=== PATIENT | female | born 2000 | race American Indian/Alaskan Native ===

== ENCOUNTER 2021-05-25 09:36 | Emergency (ER) | payer OTHER ==
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
[2021-05-25] MEDS ORDERED: Acetaminophen/oxyCODONE 325-5 MG Tab PO ONE (10:25)
[2021-05-25] MEDS ORDERED: Ondansetron 4 MG Tab.DIS PO ONE (10:25)
--- NOTE | 2021-05-25 10:46 | CR ---
EXAMINATION: Ankle Min 3V Lt SEX: Female AGE: 20 years CLINICAL HISTORY: 20-year-old female injured left ankle/foot r/o fracture or dislocation. INTERPRETATION: Negative exam. 1. Homogeneous normal bone mineral density for age and gender. No ankle joint effusion or appreciable STS. 2. No sign of pathologic skeletal lesion, left ankle fracture or dislocation. 3. Symmetric spacing normal-appearing tibiotalar mortise joint. No arthritic degenerative changes. 4. No heel spurs. No foreign bodies.
--- NOTE | 2021-05-25 10:57 | CR ---
EXAMINATION: Foot Comp Min 3V Lt SEX: Female AGE: 20 years CLINICAL HISTORY: 20-year-old female left foot pain (injury ankle/foot). No comparison films immediately available. Interpretation: Abnormal. Fractures left foot. 1. Pronounced asymmetric soft tissue swelling (STS) over the lateral aspect of the left foot. Crush injury? 2. Underlying FRACTURES (nondisplaced fracture @ base of the fifth metatarsal; comminuted cuboid fracture). 3. No sign of calcaneal, talar, other midfoot, metatarsal or phalangeal fracture of the left foot. 4. No foreign bodies.
== END 2021-05-25 12:00 | disposition home or self-care (01) ==
LOC: DL.ED 09:36
DX: S92.355A Nondisplaced fracture of fifth metatarsal bone, left foot, initial encounter for closed fracture (principal); S92.215A Nondisplaced fracture of cuboid bone of left foot, initial encounter for closed fracture; Y04.2XXA Assault by strike against or bumped into by another person, initial encounter
CPT/HCPCS: 73610-LT; 73630-LT; 99283; A9270-GY

== ENCOUNTER 2021-05-25 21:11 | Emergency (ER) | payer OTHER ==
[2021-05-25] MEDS ORDERED: Acetaminophen/oxyCODONE 325-5 MG Tab PO ONE (21:42)
--- NOTE | 2021-05-25 21:47 | EDM.PDOC ---
ED HPI GENERAL MEDICAL PROBLEM - General Chief Complaint: Lower Extremity Injury/Pain Stated Complaint: BROKEN ANKLE Time Seen by Provider: 05/25/21 21:35 Source of Information: Reports: Patient History Limitations: Reports: No Limitations - History of Present Illness INITIAL COMMENTS - FREE TEXT/NARRATIVE: This 20 yo female patient reports to the ED due to increased pain in her left foot. The patient was seen in the ED earlier today and diagnosed with a metatarsal fracture. The patient was placed in a boot and discharged with a script for Percocet. The patient reports her mother attempted to fill the prescription, but it could not be filled by her mother due to it being a narcotic. The patient did get a set of crutches from the clinic, but continue to have increased pain and swelling in the foot. The patient reports she has been attempting to rest and elevate the extremity. Onset: Today Duration: Constant Location: Reports: Lower Extremity, Left Quality: Reports: Ache, Pressure Severity: Moderate Improves with: Reports: None Worsens with: Reports: None Context: Reports: Other Associated Symptoms: Reports: No Other Symptoms Left Foot Pain Score (Numeric/FACES): 10 - Related Data Allergies Allergy/AdvReac Type Severity Reaction Status Date / Time No Known Allergies Allergy Verified 05/25/21 21:25 Home Meds: Home Meds . [No Known Home Meds] 05/25/21 [History] Past Medical History HEENT History: Reports: None Cardiovascular History: Reports: None Respiratory History: Reports: Asthma Gastrointestinal History: Reports: None Genitourinary History: Reports: None DIRECT SUPPORT PROFESSIONAL CAREGIVER History: Reports: None Musculoskeletal History: Reports: None Neurological History: Reports: None Psychiatric History: Reports: None Endocrine/Metabolic History: Reports: None Hematologic History: Reports: None Immunologic History: Reports: None Oncologic (Cancer) History: Reports: None Dermatologic History: Reports: None - Infectious Disease History Infectious Disease History: Reports: None - Past Surgical History Head Surgeries/Procedures: Reports: None Social & Family History - Family History Family Medical History: Unobtainable - Tobacco Use Tobacco Use Status *Q: Never Tobacco User Second Hand Smoke Exposure: No - Caffeine Use Caffeine Use: Reports: Energy Drinks, Soda - Recreational Drug Use Recreational Drug Use: No Review of Systems - Review of Systems Review Of Systems: Comprehensive ROS is negative, except as noted in HPI. ED EXAM, GENERAL - Physical Exam Exam: See Below Exam Limited By: No Limitations General Appearance: Alert, WD/WN, Mild Distress, Thin Eye Exam: Bilateral Eye: EOMI, Normal Inspection, PERRL Ears: Normal External Exam, Normal Canal, Hearing Grossly Normal, Normal TMs Nose: Normal Inspection, Normal Mucosa, No Blood Throat/Mouth: Normal Inspection, Normal Lips, Normal Teeth, Normal Gums, Normal Oropharynx, Normal Voice, No Airway Compromise Head: Atraumatic, Normocephalic Neck: Normal Inspection, Supple, Non-Tender, Full Range of Motion Respiratory/Chest: No Respiratory Distress, Lungs Clear, Normal Breath Sounds, No Accessory Muscle Use, Chest Non-Tender Cardiovascular: Normal Peripheral Pulses, Regular Rate, Rhythm, No Edema, No Gallop, No JVD, No Murmur, No Rub GI/Abdominal: Normal Bowel Sounds, Soft, Non-Tender, No Organomegaly, No Distention, No Abnormal Bruit, No Mass (Female) Exam: Deferred Rectal (Female) Exam: Deferred Back Exam: Normal Inspection, Full Range of Motion, NT Extremities: Leg Pain (left foot pain) Neurological: Alert, Oriented, CN II-XII Intact, Normal Cognition, Normal Gait, Normal Reflexes, No Motor/Sensory Deficits Psychiatric: Normal Affect, Normal Mood Skin Exam: Warm, Dry, Intact, Normal Color, No Rash Lymphatic: No Adenopathy Course - Vital Signs Last Recorded V/S: Last Vital Signs Temp 99.6 F 05/25/21 21:21 Pulse 107 H 05/25/21 21:21 Resp 18 05/25/21 21:21 BP 114/61 05/25/21 21:21 Pulse Ox 96 05/25/21 21:21 - Orders/Labs/Meds Orders: Active Orders 24 hr Category Date Time Status Acetaminophen/oxyCODONE [Percocet 325-5 MG] Med 05/25/21 21:42 Once 1 tab PO ONETIME ONE Medication Orders Oxycodone/Acetaminophen (Acetaminophen/Oxycodone 325-5 Mg Tab) 1 tab PO ONETIME ONE Stop: 05/25/21 21:43 Meds: Medications Generic Name Dose Route Start Last Admin Trade Name Freq PRN Reason Stop Dose Admin Oxycodone/Acetaminophen 1 tab 05/25/21 21:42 Acetaminophen/Oxycodone 325-5 Mg Tab PO 10/15/21 21:43 ONETIME ONE Departure - Departure Time of Disposition: 21:51 Disposition: Home, Self-Care 01 Condition: Fair Clinical Impression: Metatarsal fracture Qualifiers: Encounter type: initial encounter Metatarsal bone: fifth Fracture type: closed Fracture alignment: nondisplaced Laterality: left Qualified Code(s): S92.355A - Nondisplaced fracture of fifth metatarsal bone, left foot, initial encounter for closed fracture - Discharge Information *PRESCRIPTION DRUG MONITORING PROGRAM REVIEWED*: Yes *COPY OF PRESCRIPTION DRUG MONITORING REPORT IN PATIENT SALAS: No Care Plan Goals: The patient was advised of the examination results during the visit. The patient was given an oral dose of Percocet while in the ED. The patient was encouraged to rest, ice and elevate her left foot. The patient should fill the prescription she was given earlier today in the morning. If the patient has any additional symptoms or concerns, the patient should either return to the emergency department or visit her primary care facility. Sepsis Event Note (ED) - Evaluation Sepsis Screening Result: No Definite Risk - Focused Exam Vital Signs: Vital Signs Temp Pulse Resp BP Pulse Ox 05/25/21 21:21 99.6 F 107 H 18 114/61 96 - My Orders Last 24 Hours: My Active Orders 05/25/21 21:42 Acetaminophen/oxyCODONE [Percocet 325-5 MG] 1 tab PO ONETIME ONE - Assessment/Plan Last 24 Hours: My Active Orders 05/25/21 21:42 Acetaminophen/oxyCODONE [Percocet 325-5 MG] 1 tab PO ONETIME ONE
== END 2021-05-25 22:05 | disposition home or self-care (01) ==
LOC: DL.ED 21:11
DX: S92.355A Nondisplaced fracture of fifth metatarsal bone, left foot, initial encounter for closed fracture (principal); X58.XXXA Exposure to other specified factors, initial encounter
CPT/HCPCS: 99283; A9270-GY